=== PATIENT | female | born 1960 | race Caucasian/White ===

== ENCOUNTER 2019-01-03 15:00 | Inpatient (IN) ==
--- NOTE | 2019-01-03 15:11 | Emergency Department Note ---
Disposition Clinical Impression: NSTEMI (non-ST elevated myocardial infarction) Disposition: Admitted As Inpatient Condition: Good General Adult HPI - General Stated complaint: Chest Pain / MART / Nausea Time Seen by Provider: 01/03/19 15:08 - Related Data Home Medications Medication Instructions Recorded Confirmed Cetirizine HCl [Zyrtec] 10 mg PO DAILY 03/10/16 03/10/16 Dapagliflozin Propanediol [Farxiga] 5 mg PO DAILY 03/10/16 03/10/16 Lisinopril 2.5 mg PO DAILY 03/10/16 03/10/16 Montelukast [Singulair] 10 mg PO DAILY 03/10/16 03/10/16 Sitagliptin Phos/Metformin HCl 1 tab PO BID 03/10/16 03/10/16 [Janumet 50-1,000 mg Tablet] hydroCHLOROthiazide 25 mg PO DAILY 03/10/16 03/10/16 [Hydrochlorothiazide] Previous Rx's Medication Instructions Recorded Amoxicillin/Clavulanate [Augmentin] 875 mg PO BIDWM #7 tablet 09/13/17 Benzonatate [Tessalon] 200 mg PO TID PRN 7 Days capsule 09/13/17 Allergies Allergy/AdvReac Type Severity Reaction Status Date / Time No Known Allergies Allergy Verified 09/13/17 15:56 Past Medical History - Past Medical History Medical history: Reports: diabetes, hypertension Surgical history: Reports: Psychiatric history: Reports: no psych history [employer] history: Reports: non-contributory - Social History Smoking Status: Former smoker Smokeless Tobacco Status: No Alcohol use: Reports: none Drug use: Reports: none Course Vital Signs Temperature 97.7 F 01/03/19 15:16 Pulse Rate 84 01/03/19 15:16 Respiratory Rate 16 01/03/19 15:16 Blood Pressure 144/82 01/03/19 15:16 O2 Sat by Pulse Oximetry 100 01/03/19 15:16 Temperature 97.7 F 01/03/19 15:16 Pulse Rate 84 01/03/19 15:16 Respiratory Rate 16 01/03/19 15:16 Blood Pressure 144/82 01/03/19 15:16 O2 Sat by Pulse Oximetry 100 01/03/19 15:16 Oxygen Delivery Oxygen Delivery Room Air Medical Decision Making - Lab Data Result diagrams: 01/03/19 15:49 01/03/19 15:49 Lab Results 01/03/19 01/03/19 Range/Units 15:49 15:49 WBC 5.7 (4.3-11.1) K/mcL RBC 4.42 (3.82-4.97) M/mcL Hgb 12.9 (11.5-15.4) g/dL Hct 40.0 (35.3-44.9) % MCV 90.5 (83.0-100.0) fL MCH 29.2 (28.0-33.3) pg MCHC 32.3 (31.6-35.5) g/dL RDW 13.1 (11.5-14.5) % Plt Count 183 (140-400) K/mcL MPV 9.7 (9.4-12.4) fL Immature Gran % 0.2 (0-4) % Seg Neutrophils % 65.3 % Lymphocytes % 21.7 % Monocytes % 11.9 % Eosinophils % 0.7 % Basophils % 0.2 % Neutrophils # 3.7 (1.6-8.9) K/mcL Lymphocytes # 1.2 (0.6-4.6) K/mcL Monocytes # 0.7 (0.0-1.3) K/mcL Eosinophils # 0.0 (0.0-0.6) K/mcL Basophils # 0.0 (0.0-0.2) K/mcL Sodium 141 (136-145) mEq/L Potassium 3.5 (3.5-5.1) mEq/L Chloride 106 (98-107) mEq/L Carbon Dioxide 25 (23-29) mEq/L BUN 22 H (6-20) mg/dL Creatinine 1.26 H (0.60-1.20) mg/dL Est GFR ( Amer) 53 L (> 60) Est GFR (Non-Af Amer) 43 L (> 60) BUN/Creatinine Ratio 17 (6-26) Glucose 99 (70-105) mg/dL Calculated Osmolality 295 (280-300) Calcium 9.3 (8.6-10.3) mg/dL Troponin I 2.00 H* (< 0.04) ng/mL Attestation Statement - Attestation Attestation: I examined this patient and my medical decision-making was reviewed with the Resident Physician. I agree with the documented findings, disposition and treatment plan as described except to the extent set forth below. Patient with a non-STEMI, symptoms started 2 days ago have been intermittent since then. Troponin 2.0. No ischemic changes on EKG. Still has a heaviness in her chest now. No symptoms of GI bleeding or other abnormal bleeding. Will discuss with cardiology and admit to the hospital.
--- NOTE | 2019-01-03 15:16 | Emergency Department Note ---
Disposition Clinical Impression: NSTEMI (non-ST elevated myocardial infarction) Disposition: Admitted As Inpatient Condition: Good General Adult HPI - General Stated complaint: Chest Pain / MART / Nausea Time Seen by Provider: 01/03/19 15:08 Source: patient Mode of arrival: ambulatory Nursing Notes Reviewed: Yes Vital Signs Reviewed: Yes - History of Present Illness HPI Narrative: I have re-performed and reviewed the history documented by the medical student, and I confirm its accuracy except as noted below 58-year-old female presenting to [facility] ED for a one-day history of 5 out of 10 chest tightness in a bandlike distribution across her lower chest near the pectoralis musculature. Patient states that she has had significant life stressors and has taken 3 weeks off work due to the stress. Patient states that last evening approximately 5 or 6 PM that she was loading a car seat with her ex- into a vehicle when she became lightheaded and dizzy and noticed bandlike tension forming in her chest. 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 Patient states that she went home with the chest pain lasting throughout the evening also interfering with her sleep throughout the night. Patient states she woke this morning and believe the pain had gone but upon taking her granddaughter to school noticed that it had returned. Patient states that she has not taken anything for this discomfort since began. Patient states that she has past medical history of diabetes. Patient denies any other past medical history. Patient states that her mother had CHF and her father had COPD. No other significant family history listed. In addition to the symptoms mentioned above patient also complains of shaking in her extremities, feeling of "jitteriness", as well as numbness and paresthesias and a "soreness and tension" in her neck, bilateral shoulders, and back. Patient also admits to shortness of breath. Patient denies vomiting with nausea, patient has not had any recent fever or chills, she does not feel as though she will lose consciousness Onset (ago): day(s) Location: chest Radiation: back, neck, extremity Pain Severity: moderate Pain Scale: 5 Quality: dull, other (Pressure) Consistency: intermittent Improves with: nothing Worsens with: nothing Associated symptoms: Reports: chest pain, diaphoresis, headaches, nausea/vomiting, shortness of breath. Denies: fever/chills - Related Data Home Medications Medication Instructions Recorded Confirmed Cetirizine HCl [Zyrtec] 10 mg PO DAILY 03/10/16 01/03/19 Montelukast [Singulair] 10 mg PO HS 03/10/16 01/03/19 RX: hydroCHLOROthiazide 25 mg PO DAILY 03/10/16 01/03/19 [Hydrochlorothiazide] Sitagliptin Phos/Metformin HCl 1 tab PO BID 03/10/16 01/03/19 [Janumet 50-1,000 mg Tablet] Glimepiride [Amaryl] 2 mg PO DAILY 01/03/19 01/03/19 RX: BuPROPion SR (12 HR) 150 mg PO DAILY 01/03/19 01/03/19 [Wellbutrin SR] RX: Lisinopril [Zestril] 5 mg PO DAILY 01/03/19 01/03/19 Rosuvastatin Calcium 20 mg PO DAILY 01/03/19 01/03/19 Allergies Allergy/AdvReac Type Severity Reaction Status Date / Time No Known Allergies Allergy Verified 09/13/17 15:56 All systems ED: reviewed and negative except as stated. Review of Systems: As Per HPI Constitutional: Denies: fever, chills Cardiovascular: Reports: chest pain, palpitations Respiratory: Reports: dyspnea Gastrointestinal: Reports: nausea. 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 Absent: scleral icterus - Neck Neck exam: Present: normal inspection, trachea midline. Absent: thyromegaly - Chest Chest inspection: Present: normal inspection, symmetric chest wall rise - Respiratory Respiratory exam: Present: normal lung sounds bilaterally. Absent: respiratory distress, wheezes, stridor, accessory muscle use, prolonged expiratory phase - Cardiovascular Cardiovascular exam: Present: regular rate, normal rhythm, normal heart sounds, +S1, +S2. Absent: systolic murmur, diastolic murmur, JVD, +S3, +S4 - Abdominal Exam Abdominal exam: Present: soft, Non-Tender, normal bowel sounds. Absent: distention, guarding, rebound, rigidity, organomegaly - Extremities Exam Extremities exam: Present: normal inspection. Absent: pedal edema - Neurological Exam Neurological exam: Present: alert, oriented X3 - Psychiatric Psychiatric exam: Present: normal affect, normal mood - Skin Skin exam: Present: warm, dry, intact, normal color. Absent: rash, cyanosis, diaphoresis, erythema, pallor, mottled Course Course Narrative: ACS rule out We will administer Zofran for patient's nausea as well as 324 mg chewable asp irin for pain and cardiac prophylaxis CBC, BMP, troponin Chest x-ray, EKG/old EKG We will reassess Vital Signs Temperature 97.7 F 01/03/19 15:16 Pulse Rate 84 01/03/19 15:16 Respiratory Rate 16 01/03/19 15:16 Blood Pressure 144/82 01/03/19 15:16 O2 Sat by Pulse Oximetry 100 01/03/19 15:16 Temperature 97.8 F 01/04/19 00:37 Pulse Rate 69 01/04/19 00:37 Respiratory Rate 14 01/04/19 00:37 Blood Pressure 105/55 01/04/19 00:37 O2 Sat by Pulse Oximetry 97 01/04/19 00:37 Oxygen Delivery Oxygen Delivery Room Air Medical Decision Making - [facility] Narrative Medical decision making narrative: Cardiology consulted for end STEMI [employer] Rep recommended ACS dose heparin as well as nitroglycerin drip 12.5 mg metoprolol every 8 hour, patient given aspirin and fluids Patient admitted to hospitalist medicine service for further evaluation and STEMI - Lab Data Lab results reviewed: Yes I reviewed the patient's lab results. Result diagrams: 01/03/19 18:00 01/03/19 15:49 Lab Results 01/03/19 01/03/19 01/03/19 Range/Units 15:49 15:49 18:00 WBC 5.7 6.8 (4.3-11.1) K/mcL RBC 4.42 4.49 (3.82-4.97) M/mcL Hgb 12.9 13.1 (11.5-15.4) g/dL Hct 40.0 40.7 (35.3-44.9) % MCV 90.5 90.6 (83.0-100.0) fL MCH 29.2 29.2 (28.0-33.3) pg MCHC 32.3 32.2 (31.6-35.5) g/dL RDW 13.1 13.1 (11.5-14.5) % Plt Count 183 209 (140-400) K/mcL MPV 9.7 9.9 (9.4-12.4) fL Immature Gran % 0.2 (0-4) % Seg Neutrophils % 65.3 % Lymphocytes % 21.7 % Monocytes % 11.9 % Eosinophils % 0.7 % Basophils % 0.2 % Neutrophils # 3.7 (1.6-8.9) K/mcL Lymphocytes # 1.2 (0.6-4.6) K/mcL Monocytes # 0.7 (0.0-1.3) K/mcL Eosinophils # 0.0 (0.0-0.6) K/mcL Basophils # 0.0 (0.0-0.2) K/mcL PT (9.4-12.1) Seconds INR APTT (26.0-36.0) Seconds Heparin Anti-Xa, Unfract (0.30-0.70) IU/mL Sodium 141 (136-145) mEq/L Potassium 3.5 (3.5-5.1) mEq/L Chloride 106 (98-107) mEq/L Carbon Dioxide 25 (23-29) mEq/L BUN 22 H (6-20) mg/dL Creatinine 1.26 H (0.60-1.20) mg/dL Est GFR ( Amer) 53 L (> 60) Est GFR (Non-Af Amer) 43 L (> 60) BUN/Creatinine Ratio 17 (6-26) Glucose 99 (70-105) mg/dL Calculated Osmolality 295 (280-300) Calcium 9.3 (8.6-10.3) mg/dL Troponin I 2.00 H* (< 0.04) ng/mL 01/03/19 01/03/19 Range/Units 18:00 18:00 WBC (4.3-11.1) K/mcL RBC (3.82-4.97) M/mcL Hgb (11.5-15.4) g/dL Hct (35.3-44.9) % MCV (83.0-100.0) fL MCH (28.0-33.3) pg MCHC (31.6-35.5) g/dL RDW (11.5-14.5) % Plt Count (140-400) K/mcL MPV (9.4-12.4) fL Immature Gran % (0-4) % Seg Neutrophils % % Lymphocytes % % Monocytes % % Eosinophils % % Basophils % % Neutrophils # (1.6-8.9) K/mcL Lymphocytes # (0.6-4.6) K/mcL Monocytes # (0.0-1.3) K/mcL Eosinophils # (0.0-0.6) K/mcL Basophils # (0.0-0.2) K/mcL PT 10.4 (9.4-12.1) Seconds INR 0.9 APTT 29.2 (26.0-36.0) Seconds Heparin Anti-Xa, Unfract 0.04 L (0.30-0.70) IU/mL Sodium (136-145) mEq/L Potassium (3.5-5.1) mEq/L Chloride (98-107) mEq/L Carbon Dioxide (23-29) mEq/L BUN (6-20) mg/dL Creatinine (0.60-1.20) mg/dL Est GFR ( Amer) (> 60) Est GFR (Non-Af Amer) (> 60) BUN/Creatinine Ratio (6-26) Glucose (70-105) mg/dL Calculated Osmolality (280-300) Calcium (8.6-10.3) mg/dL Troponin I (< 0.04) ng/mL - Radiology Data Radiology results reviewed: Yes I reviewed the patient's radiology results. Chest X-Ray 01/03/19 15:42 IMPRESSION: No acute process. D/ / Peter Arevalo MD / Peter Arevalo MD Interpreting Provider: Peter Arevalo MD - EKG Data EKG #1 EKG attestation: Yes I reviewed and interpreted this EKG. EKG results narrative: Patient EKG shows sinus rhythm with ventricular rate of 74 bpm. Intervals 15 ms, QS duration 102 most extremities, QT/QTc interval 437.45 milliseconds shortly. There are no significant ST segment elevations, depressions, pathologic Q waves, abnormal T-wave inversions, or any other signs of acute ischemic change. This EKG performed today is generally consistent with prior EKG performed on March 042015.
[2019-01-03] MEDS ORDERED: Ondansetron ODT 4 MG TAB.RAPDIS SL ONE (15:51)
[2019-01-03] MEDS ORDERED: Aspirin 81 MG TAB.CHEW PO ONE (15:52)
[2019-01-03 16:03] LABS: Basophils % 0.2 %; Eosinophils % 0.7 %; Hemoglobin 12.9 g/dL (11.5-15.4); Immature Granulocytes % 0.2 % (0-4); Lymphocytes # 1.2 K/mcL (0.6-4.6); Lymphocytes % 21.7 %; Mean Corpuscular HGB Conc 32.3 g/dL (31.6-35.5); Mean Corpuscular Hemoglobin 29.2 pg (28.0-33.3); Mean Corpuscular Volume 90.5 fL (83.0-100.0); Mean Platelet Volume 9.7 fL (9.4-12.4); Monocytes # 0.7 K/mcL (0.0-1.3); Monocytes % 11.9 %; Neutrophils # 3.7 K/mcL (1.6-8.9); Platelet Count 183 K/mcL (140-400); Red Blood Count 4.42 M/mcL (3.82-4.97); Red Cell Distribution Width 13.1 % (11.5-14.5); Segmented Neutrophils % 65.3 %
[2019-01-03 16:20] LABS: Calcium 9.3 mg/dL (8.6-10.3); Potassium 3.5 mEq/L (3.5-5.1)
[2019-01-03] MEDS ORDERED: Nitroglycerin 0.4 MG TAB.SUBL SL PRN (17:25)
[2019-01-03] MEDS ORDERED: *HR* Heparin 5,000 UNIT/ML VIAL IVP PRN ×2 (17:28)
[2019-01-03] MEDS ORDERED: *HR* Heparin 5,000 UNIT/ML VIAL IVP ONE (17:28)
[2019-01-03] MEDS ORDERED: Heparin 25,000 UNIT/250 ML D5W 25,000 UNIT/250 ML IV.SOLN IVC SCH (17:30)
[2019-01-03] MEDS ORDERED: 0.9 % Sodium Chloride 1,000 ML IVC SCH (18:00)
[2019-01-03] MEDS ORDERED: 0.9 % Sodium Chloride 1,000 ML ONE (18:10)
[2019-01-03] MEDS ORDERED: Nitroglycerin 25 MG/250 ML INFUS..BTL IVC SCH (18:15)
[2019-01-03 18:22] LABS: Hematocrit 40.7 % (35.3-44.9); Hemoglobin 13.1 g/dL (11.5-15.4); Mean Corpuscular HGB Conc 32.2 g/dL (31.6-35.5); Mean Corpuscular Hemoglobin 29.2 pg (28.0-33.3); Mean Corpuscular Volume 90.6 fL (83.0-100.0); Mean Platelet Volume 9.9 fL (9.4-12.4); Platelet Count 209 K/mcL (140-400); Red Blood Count 4.49 M/mcL (3.82-4.97); Red Cell Distribution Width 13.1 % (11.5-14.5)
[2019-01-03] MEDS ORDERED: Acetaminophen 325 MG TABLET PO PRN (18:26)
[2019-01-03] MEDS ORDERED: Naloxone 0.4 MG/ML INJ IVP PRN (18:26)
[2019-01-03 18:30] LABS: Heparin anti-factor XA UFH 0.04 IU/mL (0.30-0.70); INR 0.9; Prothrombin Time 10.4 Seconds (9.4-12.1)
[2019-01-03] MEDS ORDERED: D5% in Water 1,000 ML IVC PRN (18:32)
[2019-01-03] MEDS ORDERED: *HR* Dextrose 50 % in Water (Syg) 50 ML SYRINGE IVP PRN (18:32)
[2019-01-03] MEDS ORDERED: Dextrose Gel 15 GM/37.5 ML TUBE PO PRN ×2 (18:32)
--- NOTE | 2019-01-03 18:51 | Internal Med History&Physical ---
Date of Encounter: 01/03/19 Time of Encounter: 18:00 Internal Medicine - H&P: HPI Chief complaint: Chest pain Admitted From: Home Plans for Post Hospital Care: Home History of present illness: Ms. Babcock is a 58 year old female present to ER for chest pain. Past medical history is significant for diabetes, S/P 2, tonsillectomy, carpal tunnel surgery, morbid obesity. Patient started to have nausea since yesterday evening 5 PM. With lightheaded when she stands up. Patient had diaphoresis. Patient feels chest tightness, pressure, dull pain, and bilateral arm "hurt". Patient had shortness of breath. Patient went to sleep because she feels not good. This morning, when she wake- up, she feels nausea has improved but chest pressure and dull pain remains. Patient denies fever, cough, abdominal pain, or diarrhea. Patient was suggested by family member to come to ER. In the emergency room, EKG has been done, which shows lead I and aVL T-wave flat, no significant ST elevation. First of troponin 2.0. Cardiology was counseled by emergency room. Patient was admitted as NSTEMI. Past Med Surg Social Fam HX - Past Medical History Medical history: diabetes, hypertension Additional medical history: sleep apnea with cpap 15. History of tobacco use. carpal tunnel syndrome. HLD. diabetes. Trigger finger left thumb and left index finger. triiger finger right index finger Psychiatric history: no psych history - Past Surgical History Surgical History: Additional surgical history: c section x2. T&A - Social History Smoking Status: Former smoker Smokeless Tobacco Status: No Alcohol use: none Drug use: none - Family History Mother History Unknown: Yes Internal Medicine - H&P: Meds Cetirizine HCl [Zyrtec] 10 mg PO DAILY 03/10/16 [History] Dapagliflozin Propanediol [Farxiga] 5 mg PO DAILY 03/10/16 [History] Lisinopril 2.5 mg PO DAILY 03/10/16 [History] Montelukast [Singulair] 10 mg PO DAILY 03/10/16 [History] Sitagliptin Phos/Metformin HCl [Janumet 50-1,000 mg Tablet] 1 tab PO BID [History] hydroCHLOROthiazide [Hydrochlorothiazide] 25 mg PO DAILY 03/10/16 [History] Amoxicillin/Clavulanate [Augmentin] 875 mg PO BIDWM #7 tablet 09/13/17 [Rx] Benzonatate [Tessalon] 200 mg PO TID PRN 7 Days capsule 09/13/17 [Rx] Allergy/AdvReac Type Severity Reaction Status Date / Time No Known Allergies Allergy Verified 09/13/17 15:56 All Systems PM: A 10-system review of systems was performed and is negative for pertinent findings except as documented above in the HPI. - Constitutional Vitals: Temp Pulse Resp BP Pulse Ox 97.7 F 74 20 152/85 98 01/03/19 15:16 01/03/19 18:32 01/03/19 18:32 01/03/19 18:32 01/03/19 18:32 Exam: Pt is AAO x 3, in NAD HEENT: NC/AT, PERRL Neck: Supple, no JVD, no LAD Lungs: CTA b/l Heart: S1S2, RRR Abd: Soft, nontender, BS present Ext: ROM wnl, no pedal edema Neuro: No focal deficit Internal Med - H&P Results - Labs CBC & Chem 7: 01/03/19 18:00 01/03/19 15:49 Labs: Short CBC 01/03/19 01/03/19 Range/Units 15:49 18:00 WBC 5.7 6.8 (4.3-11.1) K/mcL Hgb 12.9 13.1 (11.5-15.4) g/dL Hct 40.0 40.7 (35.3-44.9) % Plt Count 183 209 (140-400) K/mcL Neutrophils # 3.7 (1.6-8.9) K/mcL BMP 01/03/19 15:49 Sodium 141 Potassium 3.5 Chloride 106 Carbon Dioxide 25 BUN 22 H Creatinine 1.26 H Glucose 99 Calcium 9.3 Cardiac Enzymes 01/03/19 Range/Units 15:49 Troponin I 2.00 H* (< 0.04) ng/mL - Impressions ITS Impressions Chest X-Ray 01/03/19 15:42 IMPRESSION: No acute process. D/ / Peter Arevalo MD / Peter Arevalo MD Interpreting Provider: Peter Arevalo MD - Assessment and Plan (1) Diabetes mellitus Current Visit: Yes Status: Acute Assessment and plan: Patient takes Janumet at home. Will place patient on sliding scale insulin coverage. Qualifiers: Diabetes mellitus type: type 2 Diabetes mellitus terminal supervisor insulin use: without detention use Diabetes mellitus complication status: without complica tion Qualified Code(s): E11.9 - Type 2 diabetes mellitus without complications (2) NSTEMI (non-ST elevated myocardial infarction) Current Visit: Yes Status: Acute Assessment and plan: Patient has chest pain, pressure-like, with nausea, shortness of breath, and diaphoresis. Has a risk factor of morbid obesity and diabetes. Has history of smoking, quit 5-7 years ago. Elevated troponin without ST elevation, consider NSTEMI. - Place patient on continuous cardiac monitoring - Track totally 3 sets of troponin - Heparin drip and nitroglycerin drip started from ER, will continue. - ASA 324 mg by mouth once given from ER. Metoprolol 12.5 mg by mouth every 8 hours. - Nothing by mouth from midnight for possible LHC in AM - Consult cardiology. Management plans discussed with brand lead Dr. Lamb. (3) DVT prophylaxis Current Visit: Yes Status: Acute Assessment and plan: Patient is on heparin drip (4) Morbid obesity Current Visit: Yes Status: Acute Assessment and plan: BMI of 40.9. Need lifestyle modification as outpatient. - Time Spent With Patient Total time spent is greater than 50% in coordination of care (as documented) at patient's floor/unit and/or counseling patient: 40 minutes Greater than 35 minutes
[2019-01-03] MEDS: Ondansetron 4 MG/2 ML VIAL IVP SCH (21:50)
[2019-01-03] MEDS: 0.9 % Sodium Chloride 1,000 ML IVC SCH (21:54)
[2019-01-03] MEDS: Insulin LISPRO 300 UNITS/3 ML VIAL SQ SCH (22:33)
[2019-01-04] MEDS: Ondansetron 4 MG/2 ML VIAL IVP SCH ×6 (00:17→20:32)
[2019-01-04 01:45] LABS: Basophils % 0.4 %; Eosinophils # 0.1 K/mcL (0.0-0.6); Eosinophils % 1.5 %; Hematocrit 36.4 % (35.3-44.9); Hemoglobin 11.7 g/dL (11.5-15.4); Immature Granulocytes % 0.4 % (0-4); Lymphocytes # 1.9 K/mcL (0.6-4.6); Lymphocytes % 34.8 %; Mean Corpuscular HGB Conc 32.1 g/dL (31.6-35.5); Mean Corpuscular Hemoglobin 29.4 pg (28.0-33.3); Mean Corpuscular Volume 91.5 fL (83.0-100.0); Monocytes # 0.5 K/mcL (0.0-1.3); Monocytes % 9.1 %; Platelet Count 182 K/mcL (140-400); Red Blood Count 3.98 M/mcL (3.82-4.97); Red Cell Distribution Width 13.1 % (11.5-14.5); Segmented Neutrophils % 53.8 %
[2019-01-04 02:05] LABS: Calcium 8.5 mg/dL (8.6-10.3); Chol/HDL Ratio 2.8 (0-4.9); Potassium 3.4 mEq/L (3.5-5.1)
[2019-01-04] MEDS ORDERED: Potassium Chloride 40 MEQ, Lidocaine 1% 2 ML in D5% in Water 500 ML IVPB ONE (07:48)
[2019-01-04] MEDS: Insulin LISPRO 300 UNITS/3 ML VIAL SQ SCH ×4 (08:56→21:45)
--- NOTE | 2019-01-04 09:37 | Cardiology Consult Note ---
<Marcello Celaya - Last Filed: 01/04/19 10:00> Date of Encounter: 01/04/19 Time of Encounter: 09:33 Assessment and Plan (1) NSTEMI (non-ST elevated myocardial infarction) Current Visit: Yes Status: Acute DM female presenting with chest pain for three days. No prior cardiac history. Troponin elevation up to 3.87. EKG shows SR with possible old septal infarct. Continue heparin gtt. [facility] recommended. [facility] indication, risk, benefit, and alternatives reviewed. She agrees to proceed. Start asa, statin, and bb. NTG SL for chest pain. (2) Diabetes mellitus Current Visit: Yes Status: Acute H/o type II DM. IM following. Qualifiers: Diabetes mellitus type: type 2 Diabetes mellitus parts counterman insulin use: without fci use Diabetes mellitus complication status: without complication Qualified Code(s): E11.9 - Type 2 diabetes mellitus without complications Discussion w patient/family: The assessment and plan as outlined above was discussed with the patient and/or family members who expressed understanding and agreement. All questions were answered. Thank you for involving us in the care of your patient. Please call with any questions. History of Present Illness Consult date: 01/04/19 Requesting physician: Giovanny Guillermo Consult reason: NSTEMI Chief complaint: chest pain, diaphoresis, fatigue History of present illness: Ms. Babcock is a 58 year old female with past medical history of DM type II, HTN, HLD, and obesity who presents with c/o chest pain for three days. Her chest pain started wednesday afternoon when she was getting ready to go to a meeting. She describes the pain as a midsternal heaviness and pressure. After bending over and standing she became very diaphoretic and lightheaded. She continued to have chest pressure and fatigue for the next two days as she carried on her normal activities. Yesterday morning she she started to feel better. Unfortunately her pain returned with physical exertion later that morning. That is when she decided to go to the ED. She is currently pain free after receiving SL NTG and NTG IV gtt. Past Med Surg Social Fam HX - Past Medical History Medical history: diabetes, hyperlipidemia, hypertension Additional medical history: sleep apnea with cpap 15. History of tobacco use. carpal tunnel syndrome. HLD. diabetes. Trigger finger left thumb and left index finger. triiger finger right index finger Psychiatric history: no psych history - Past Surgical History Surgical History: Additional surgical history: c section x2. T&A - Social History Smoking Status: Former smoker Smokeless Tobacco Status: No Alcohol use: none Drug use: none - Family History Mother History Unknown: Yes Name: Leonor Harrison Living Status: Age at : 75 Cause of : CHF Hx Family Cardiac Disorders: Yes (chf) Hx Family Respiratory Disorders: No Hx Family Cancer: No Hx Family GI Disorders: No Hx Family Genitourinary Disorders: No Hx Family Endocrine Disorder: No Hx Family Musculoskeletal Disorders: No Hx Family Neuromuscular Disorders: No Hx Family Neurologic Disorders: No Hx Family HEENT Disorders: No Hx Family Autoimmune Disorders: No Hx Family Reproductive Disorders: No Hx Family Psychosocial Disorders: No Hx Family Medical Disorders: No Medications and Allergies Cetirizine HCl [Zyrtec] 10 mg PO DAILY 03/10/16 [History] Montelukast [Singulair] 10 mg PO HS 03/10/16 [History] Sitagliptin Phos/Metformin HCl [Janumet 50-1,000 mg Tablet] 1 tab PO BID 03/10/16 [History] hydroCHLOROthiazide [Hydrochlorothiazide] 25 mg PO DAILY 03/10/16 [History] BuPROPion SR (12 HR) [Wellbutrin SR] 150 mg PO DAILY 01/03/19 [History] Glimepiride [Amaryl] 2 mg PO DAILY 01/03/19 [History] Lisinopril [Zestril] 5 mg PO DAILY 01/03/19 [History] Rosuvastatin Calcium 20 mg PO DAILY 01/03/19 [History] Allergy/AdvReac Type Severity Reaction Status Date / Time No Known Allergies Allergy Verified 09/13/17 15:56 All Systems Review: The remainder of the systems were reviewed and are negative Physical Examination Vital Signs, Last 4 Hours Temp Pulse Resp BP Pulse Ox 01/04/19 07:00 97.5 F L 60 16 103/52 95 General: Conversant, No Apparent Distress HEENT: Atraumatic, Normocephaly, Mucus Membranes Moist Neck: No JVD, Normal carotid pulses Cardiac: Reg Rate and Rhythm, Normal S1 and S2, No Murmur Lungs: Normal Breath Sounds, No Wheeze, Rales, Rhonchi Neuro: Alert and responsive, No focal deficits noted Abdomen: Soft, Non-Tender Skin: No rashes noted on visualized skin Musculoskeletal: No Chest Wall Tenderness Extremities: No Clubbing, No Cyanosis, No Edema, Normal Pulses Results 01/04/19 01:26 01/04/19 01:26 Lab Results 01/03/19 01/03/19 01/03/19 15:49 15:49 18:00 WBC 5.7 6.8 Hgb 12.9 13.1 Hct 40.0 40.7 Plt Count 183 209 INR APTT Sodium 141 Potassium 3.5 Chloride 106 Carbon Dioxide 25 BUN 22 H Creatinine 1.26 H Glucose 99 Calcium 9.3 Magnesium Troponin I 2.00 H* 01/03/19 01/03/19 01/03/19 18:00 18:00 21:44 WBC Hgb Hct Plt Count INR 0.9 APTT 29.2 Sodium Potassium Chloride Carbon Dioxide BUN Creatinine Glucose Calcium Magnesium Troponin I 3.14 H* 01/04/19 01/04/19 01/04/19 01:26 01:26 01:26 WBC 5.5 Hgb 11.7 Hct 36.4 Plt Count 182 INR APTT Sodium 140 Potassium 3.4 L Chloride 107 Carbon Dioxide 26 BUN 20 Creatinine 1.18 Glucose 119 H Calcium 8.5 L Magnesium 2.0 Troponin I 3.87 H* 01/04/19 05:44 WBC Hgb Hct Plt Count INR APTT Sodium Potassium Chloride Carbon Dioxide BUN Creatinine Glucose Calcium Magnesium Troponin I 3.81 H* - Imaging and Cardiology Echo: pending - EKG Interpretation EKG results cardiology: personally reviewed Consult Discharge Plan - Plan Referrals: Allegra Rockwell CNP [Primary Care Provider] - <Jie Sotelo - Last Filed: 01/04/19 11:47> Date of Encounter: 01/04/19 - Attending Attestation I examined this patient and my medical decision-making was reviewed with the CONSULTING PRACTICE MANAGER. I agree with the documented findings, disposition and treatment plan as described. Assessment and Plan Discussion w patient/family: The assessment and plan as outlined above was discussed with the patient and/or family members who expressed understanding and agreement. All questions were answered. Thank you for involving us in the care of your patient. Please call with any questions. History of Present Illness History of present illness: Ms. Babcock is a 58 year old female All Systems Review: The remainder of the systems were reviewed and are negative Physical Examination Vital Signs, Last 4 Hours Temp Pulse Resp BP Pulse Ox 01/04/19 11:32 98 F 52 20 91/57 96 Results 01/04/19 01:26 01/04/19 01:26 Lab Results 01/03/19 01/03/19 01/03/19 15:49 15:49 18:00 WBC 5.7 6.8 Hgb 12.9 13.1 Hct 40.0 40.7 Plt Count 183 209 INR APTT Sodium 141 Potassium 3.5 Chloride 106 Carbon Dioxide 25 BUN 22 H Creatinine 1.26 H Glucose 99 Calcium 9.3 Magnesium Troponin I 2.00 H* 01/03/19 01/03/19 01/03/19 18:00 18:00 21:44 WBC Hgb Hct Plt Count INR 0.9 APTT 29.2 Sodium Potassium Chloride Carbon Dioxide BUN Creatinine Glucose Calcium Magnesium Troponin I 3.14 H* 01/04/19 01/04/19 01/04/19 01:26 01:26 01:26 WBC 5.5 Hgb 11.7 Hct 36.4 Plt Count 182 INR APTT Sodium 140 Potassium 3.4 L Chloride 107 Carbon Dioxide 26 BUN 20 Creatinine 1.18 Glucose 119 H Calcium 8.5 L Magnesium 2.0 Troponin I 3.87 H* 01/04/19 05:44 WBC Hgb Hct Plt Count INR APTT Sodium Potassium Chloride Carbon Dioxide BUN Creatinine Glucose Calcium Magnesium Troponin I 3.81 H*
[2019-01-04] MEDS ORDERED: Verapamil 5 MG/2 ML VIAL ONE (09:43)
[2019-01-04] MEDS ORDERED: Heparin 1,000 UNITS/500 mL 500 ML ONE (09:44)
[2019-01-04] MEDS ORDERED: ISOVUE-370 200 ML INFUS..BTL ONE ×2 (09:44→09:48)
[2019-01-04] MEDS ORDERED: *HR* Heparin 10,000 UNIT/10 ML VIAL ONE (09:44)
[2019-01-04] MEDS ORDERED: Nitroglycerin 1,000 MCG/10 ML VIAL IV ONE (09:44)
[2019-01-04] MEDS ORDERED: 0.9 % Sodium Chloride 1,000 ML ONE ×2 (09:44→09:50)
[2019-01-04] MEDS: 0.9 % Sodium Chloride 1,000 ML IVC SCH (10:19)
[2019-01-04] MEDS ORDERED: *HR* Midazolam HCl 2 MG/2 ML VIAL ONE (10:24)
[2019-01-04] MEDS ORDERED: *HR* FentaNYL (PF) 100 MCG/2 ML VIAL ONE (10:32)
[2019-01-04] MEDS ORDERED: *HR* Atropine Sulfate 1 MG/10 ML SYRINGE ONE (10:44)
[2019-01-04] MEDS ORDERED: *HR* Ticagrelor 90 MG TABLET ONE (10:56)
--- NOTE | 2019-01-04 11:06 | Event Note ---
Date of Encounter: 01/04/19 Time of Encounter: 11:05 - Cardiology Event Note Cath completed LVEF 60% RCA: mid complex 85% 3.5 yumi LCA no severe disease recommend dapt medical therapy cardiac rehab DM control
--- NOTE | 2019-01-04 11:11 | Pre-Sedation Evaluation ---
Pre-sedation evaluation - Pre-sedation checklist Date of procedure: 01/04/19 Recent Vitals: Last Vital Signs Temp 97.5 F L 01/04/19 07:00 Pulse 60 01/04/19 07:00 Resp 16 01/04/19 07:00 BP 103/52 01/04/19 07:00 Pulse Ox 95 01/04/19 07:00 H&P (including ROS) documented in medical record: Yes Previous reaction to sedatives/anesthetics: No Dietary Status: NPO after Midnight Airway Assessment: Patient can open mouth completely, TMJ function normal Dentition: No loose teeth or bridges Possible difficult airway: No ASA Classification *see protocol: CLASS II-Mild systemic disease Plan of Care: Pt appropriate candidate for procedure/moderate/conscious sedation Cardiac Registry (Cardio Only) - Functional Capacity Functional Capacity: >=4 METS with symptoms - Clincal Frailty Scale Clinical Frailty Scale: Well
--- NOTE | 2019-01-04 11:16 | Invasive Diagnostic Lab Proc ---
Name: Margaret Babcock Date of Study: 01/04/2019 Date: 1960 Ht: 60.6in Medical Record#: [id number] Age: 58 Wt: 220.46lb Gender: Female BSA: 1.96 Order #: [id number] BMI: 42.17 Physicians Procedure Physician: Daron Hernández MD Referring MD: Referring MD: Staff Name Position Time In RobertoKing RT (R) Scrub 10:20 AM Milton Ren RN Manager Beauty 10:20 AM Nancy Wharton RN Monitor 10:22 AM Mame Gonzalez RN Nurse 10:23 AM Indications Indication Non-Stemi Procedures Performed Procedure L HRT ARTERY/VENTRICLE ANGIO PRQ CARD SAWYER STENT W/ANGIO 1 VSL Pre-Procedure Checklist Informed consent is complete signed and on chart. H&P is on chart. ID band is on and ID verified with patient. Patient NPO for procedure The procedure was described for the patient and questions were answered. ECG is on chart. Plan of Care Patient will tolerate the procedure without complications. Adequate level of comfort will be maintained. Hemodynamics will remain stable Patient will recover from procedure without complications. Respiratory function will be maintained. Cardiac rhythm will remain stable. Patient temperature will be maintained. Patient and/or family have verbalized understanding of the procedure. Patient Education Chief Complaint/Reason for Test: Cardiac Cath Developmental Category: Adult (18-64 years) Developmentally Appropriate for Age: Yes Learning Barriers: None Education Needs: Procedure Education Method: Verbal Information Taught: Cardiac Cath Educational Evaluation: Able to repeat information Intravenous Access Time IV Size Location DC'd Fluid/Drip Rate Units RN 20g 1 09/16" Patent On Arrival 0.9NaCl ml/hr Allergies No Known Allergies Vital Signs Time BP (mmHg) HR (bpm) O2 Sat. RR (bpm) LOC 10:24 AM / % 5 = Fully awake and oriented or at pre-proc level 10:25 AM / % 4 = Oriented but drowsy 10:40 AM / % 4 = Oriented but drowsy 10:23 AM 131 / 74 53 98 % 8 10:28 AM 122 / 67 58 77 % 10:33 AM 113 / 62 58 99 % 38 10:38 AM 100 / 44 54 92 % 19 10:43 AM 97 / 48 48 93 % 18 10:48 AM 103 / 60 56 95 % 22 10:53 AM 109 / 55 59 95 % 26 Procedural Medications Time Medication Dose Units Method Given By 10:25 AM Versed 2 mg Intravenous Milton Ren RN 10:31 AM Lidocaine 2% 1 ml Subcutaneous Daron Hernández MD 10:33 AM Heparin 4000 units Nitroglycerin 200 mcg Verapamil 2.5 mg Intraarterial Daron Hernández MD 10:33 AM Fentanyl 25 mcg Intravenous Milton Ren RN 10:44 AM Heparin 3000 units Intravenous Milton Ren RN 10:46 AM Nitroglycerin 200 mcg Intracoronary Daron Hernández MD 10:57 AM Brilinta 180 mg Orally Milton Ren RN ASA Classification: CLASS II- Mild systemic disease (i.e. well-controlled diabetes, hypertension, asthma, cigarette smoking) Evert Score Preprocedure Postprocedure Activity 2- Moves 4 extremities sustained head lift Activity 2- Moves 4 extremities sustained head lift Circulation 2- SBP +/= 20 points of pre-anesthetic level Circulation 2- SBP +/= 20 points of pre-anesthetic level Consciousness 2- Awake and alert oriented x 3 Consciousness 2- Awake and alert oriented x 3 O2 Saturation 2- Able to maintain O2 satruation of 92% on room air O2 Saturation 2- Able to maintain O2 satruation of 92% on room air Respiratory 2- Able to deep breathe and cough well Respiratory 2- Able to deep breathe and cough well Total Score 10 Total Score 10 Contrast Agent: Isovue Diagnostic Contrast: 100 ml Total Contrast: 100 ml Fluoro Dose: 40 mGy Activated Clotting Time Time Seconds to Clot 10:44 AM 178 11:03 AM 380 Procedure Log Time Note Enter By 09:56 AM Patient charges- Angio tray pack, Navilyst 3mm J, Pulse Oximetry and ACIST tubing and transducer [email or web address] 09:56 AM Clinical Presentation: Non-STEMI tsoummers 10:18 AM Pt arrived to industrial laborer 2 at 10:18 [email or web address] 10:20 AM King Mejia RT (R) Position: Scrub Time in: 10:20 tsmmers 10:20 AM Patient charges- Angio tray pack, Navilyst 3mm J, Pulse Oximetry and ACIST tubing and transducer tsoummers 10:20 AM Milton Ren RN Position: Manager Beauty Time in: 10:20 tsmmers 10:20 AM Patient charges- Angio tray pack, Navilyst 3mm J, Pulse Oximetry and ACIST tubing and transducer 10:20 AM IV Supplies used: J loop Angio Cath. mmers 10:20 AM Case Delayed No mm 10:20 AM Physician arrived 10:20 [facility] 10:20 AM Meet and greet completed [facility] 10:20 AM Sign in performed according to hospital policy. Informed consent was obtained. mm 10:20 AM Procedure start 10:mmers 10: AM CathStat 10: AM Vitals capture started with the following parameters, Patient=Adult, Interval=5 min, Initial Nukgaiwp=706 mmHg, Deflation Rate=5 mmHg, Cuff placed on Right Arm 10: AM Nancy Wharton RN Position: Monitor Time in: 10: AM Mame Gonzalez RN Position: Nurse Time in: [facility] 10: AM Vitals capture started with the following parameters, Patient=Adult, Interval=5 min, Initial Kbnrrahy=415 mmHg, Deflation Rate=5 mmHg, Cuff placed on Right Arm 10: AM HR=53 bpm, NSYQ=991/74 mmhg, SpO2=98.0 %, Resp=8 B/min 10:24 AM ASA Class CLASS II- Mild systemic disease (i.e. well-controlled diabetes, hypertension, asthma, cigarette smoking) mm 10:24 AM Hair removed from procedure site in procedure lab using clippers. tami prepped with Chloraprep by , then patient was draped. Skin intact. mmers 10:24 AM Recorded ECG: HR=56 Condition=Condition 1 10:24 AM Time: 10:24 Patient comfortable and pain free: Yes mm 10:25 AM Time: 10:24LOC: 5 = Fully awake and oriented or at pre-proc level mmers 10:25 AM Time: 10:25 Versed 2 mg Intravenous Given by Milton Ren RN [facility] 10: AM Recorded ECG: HR=67 Condition=Condition 1 10:28 AM HR=58 bpm, IYJW=081/67 mmhg, SpO2=77.0 % 10:30 AM Time out was performed according to hospital policy. Conscious sedation and anesthesia was achieved (see medication log with in this report above) [facility] 10:31 AM Pressure channel 2 zeroed. 10:31 AM Pressure channel 2 zeroed. 10:31 AM Time: 10:31 1 ml Lidocaine 2% to right radial Subcutaneous Given by Daron Hernández MD [facility] 10:32 AM Access obtained by percutaneous puncture. 6Fr 10cm Terumo Glidesheath sheath placed in right Radial artery. [id number] [facility] 10:33 AM Time: 10:33 Patient given 4,000 units Heparin, 200 mcg Nitroglycerin, and 2.5 mg Verapamil Intraarterial by Daron Hernández MD. This is given to reduce risk of vessel spasm and thrombosis. [facility] 10:33 AM Time: 10:33 Fentanyl 25 mcg Intravenous Given by Milton Ren RN [facility] 10:33 AM 0.035 145cm Navilyst 3mmJ wire [id number] avis 10:33 AM 5Fr FL 3.5 [facility] HR=58 bpm, LMLX=085/62 mmhg, SpO2=99.0 %, Resp=38 B/min, EtCO2=36 mmHg 10:35 AM LCA angiography performed in multiple views. [facility] 10:36 AM Recorded Pressure: Ao, HR=59, Condition=Condition 1 (Aorta) Ao 83/57/68 10:38 AM Catheter removed [facility] 10:38 AM 5Fr FR 4 [facility] AM HR=54 bpm, BLDI=725/44 mmhg, SpO2=92.0 %, Resp=19 B/min, EtCO2=27 mmHg 10:39 AM RCA angiography performed in multiple views. [facility] 10:39 AM Recorded Pressure: Ao, HR=59, Condition=Condition 1 (Aorta) Ao 89/54/71 10:39 AM Time: 10:24 Patient comfortable and pain free: Yes [facility] 10:40 AM Time: 10:25LOC: 4 = Oriented but drowsy [facility] 10:42 AM Recorded Pressure: LV, HR=59, Condition=Condition 1 (Left Ventricle) LV 92/2/12 10:42 AM Recorded Pressure: LV, HR=58, Condition=Condition 1 (Left Ventricle) LV 95/3/14 10:42 AM Recorded Pressure: LV, Ao, HR=55, Condition=Condition 1 (Left Ventricle) LV 94/7/14, (Aorta) Ao 89/48/66 10:43 AM Catheter removed [facility] 10:43 AM 5Fr Pigtail catheter inserted over the wire [facility] 10:43 AM Catheter crossed the aortic valve and was selectively placed in the left ventricle. Pressures recorded on pullback for left heart catheterization. [facility] 10:43 AM HR=48 bpm, NIBP=97/48 mmhg, SpO2=93.0 %, Resp=18 B/min, EtCO2=30 mmHg 10:43 AM Bolus angiogram of left Ventricle complete: hand injected [facility] 10:44 AM At 10:44 the ACT was 178 seconds. [facility] 10:44 AM Catheter removed [facility] 10:45 AM Time: 10:44 Heparin 3000 units Intravenous Given by Milton Ren RN [facility] 10:45 AM 6Fr JR 4 Runway guide catheter was used to cannulate the PCI vessel successfully. reused? No [facility] 10:45 AM .014 Balance 300cm guide wire across target lesion- successful. reused? No [facility] 10:45 AM Inflation device was opened. [facility] 10:46 AM Time: 10:46 Nitroglycerin 200 mcg Intracoronary Given by Daron Hernández MD [facility] 10:47 AM Recorded Pressure: Ao, HR=60, Condition=Condition 1 (Aorta) Ao 83/52/67 10:48 AM 3.5mm x 12mm Synergy drug-eluting stent across target lesion- successful Lot #[id number] [facility] 10:48 AM HR=56 bpm, PVLF=834/60 mmhg, SpO2=95.0 %, Resp=22 B/min, EtCO2=39 mmHg 10:50 AM Stent deployed @ 12 nohemi for 30 seconds [facility] 10:50 AM Stent delivery system removed intact. [facility] 10:53 AM Guide wire removed intact. [facility] 10:53 AM HR=59 bpm, DTZK=105/55 mmhg, SpO2=95.0 %, Resp=26 B/min, EtCO2=32 mmHg 10:54 AM Guide catheter removed intact. [facility] 10:54 AM Procedure completed at 10:54 01/04/2019 [facility] 10:54 AM Did you address MAHENDRA flow and Dominance? Yes [facility] 10:54 AM Time: 10:39 Patient comfortable and pain free: Yes [facility] 10:55 AM Time: 10:40LOC: 4 = Oriented but drowsy [facility] 10:56 AM Sign out completed: Radiation Dose 466.74 mGy, 39.5 Gy/cm2 Fluoro Time: 6.7 Isovue 370 - 200ml contrast 100 ml given by Daron Hernández MD. Complications: None. The patient was discharged out of the [place] conservation laborer in stable condition. Sedation minutes 30. Cardiac Rehab Consult needed: No. Confirmed administered medications: Yes [facility] 10:56 AM Isovue 370 - 200ml,1 Bottle(s) used. [facility] 10:56 AM Arterial sheath pulled, Vasc Band closure device used and was Successful S/N. [facility] 10:57 AM Time: 10:57 Brilinta 180 mg Orally Given by Milton Ren RN [facility] 10:57 AM 11 ml air in Vasc Band. [facility] 10:57 AM Estimated Blood Loss: minimal [facility] 10:57 AM Post ECG Sinus Bradycardia [facility] 10:57 AM Post Blood Pressure 109/55 [facility] 10:58 AM Information taught Cardiac Cath, PCI, and Vasc Band [facility] 10:58 AM Education needs Procedure, Plan of Care, and Disease Process [facility] 10:58 AM Learning barriers :None [facility] 10:58 AM Education Methods Verbal [facility] 10:58 AM Education evaluation Able to repeat information [facility] 10:58 AM Site status No bleeding/hematoma - Rt Arm as reported by King Mejia RT (R) at 10:58 [facility] 10:58 AM Opsite applied [facility] 10:58 AM Report given to Jeimy RN Pt taken to 2NE Room #24. 10:58 [facility] 10:58 AM Plavix, Effient or Brilinta given Yes [facility] 10:59 AM Delay to floor No [facility] 10:59 AM Patient out of room: 10:59 [facility] 10:59 AM Family placed in consult room. [facility] 10:59 AM Complications: None [facility] 11:01 AM Coronary Dominance: right [facility] 11:02 AM Lesion found in Proximal RCA. Pre Stenosis: 20 Pre MAHENDRA Flow: [facility] 11:02 AM Lesion found in Mid RCA. Pre Stenosis: 85 Pre MAHENDRA Flow: 2: Partial Flow/Perfusion (> 1 but < 3) [facility] 11:02 AM Lesion found in 1st Diagonal. Pre Stenosis: 25 Pre MAHENDRA Flow: [facility] 11:03 AM Lesion found in Proximal Circumflex. Pre Stenosis: 20 Pre MAHENDRA Flow: [facility] 11:03 AM At 11:03 the ACT was 380 seconds. [facility] 11:03 AM Mid/Distal Left Anterior Descending Coronary Artery and diagonal branches with 25% stenosis. If graft is supplying this area, 0 % stenosis [facility] 11:03 AM Circumflex, Obtuse Marginal, Left Posterior Descending, and Left Posterolateral Coronary Arteries with 20 % stenosis. If graft is supplying this area, 0 % stenosis [facility] 11:04 AM Right Coronary, Right Posterior Descending Arteries with Right Posterolateral and Acute Marginal branches with 85 % stenosis. If graft is supplying this area, 0 % stenosis [facility] Complications Complication None None Hemodynamics Pressures Site Systolic/A Wave Diastolic/V Wave Mean AO 83 57 68 AO 89 54 71 LV 92 2 12 LV 95 3 14 LV 94 7 14 AO 89 48 66 AO 83 52 67 Post Procedure Information Blood Pressure: 109/55 mmHg Rhythm: Sinus Bradycardia Post procedural instructions were given Closure Device Time Device Success/Fail 01/04/2019 11:05:00 AM Mechanical Compression Successful Site Checks Time Location Status Staff Sheath In? Note 10:58 AM Rt Arm No bleeding/hematoma King Mejia RT (R) Pulses Time Site Pre-Procedure Post-Procedure Note Bilateral DP & PT 1+ Bilateral radial 2+ Updated by Mame Gonzalez RN on 01/04/2019 11:09:21 AM electronically signed on 01/04/2019 11:09:57 AM with status of Final
--- NOTE | 2019-01-04 13:18 | Internal Med Progress Note ---
Hospitalist Progress Note - Encounter Date of Encounter: 01/04/19 Time of Encounter: 09:00 - Subjective Interval History: Patient said symptoms has improved. No chest pain or chest pressure this morning. Feels like she is at her normal status. Nitroglycerin drip stopped because BP intolerance. On heparin drip. - Exam Vitals: Temp Pulse Resp BP Pulse Ox 98 F 52 20 91/57 96 01/04/19 11:32 01/04/19 11:32 01/04/19 11:32 01/04/19 11:32 01/04/19 11:32 Exam: Pt is AAO x 3, in NAD HEENT: NC/AT, PERRL Neck: Supple, no JVD, no LAD Lungs: CTA b/l Heart: S1S2, RRR Abd: Soft, nontender, BS present Ext: ROM wnl, no pedal edema Neuro: No focal deficit - Assessment and Plan (1) Diabetes mellitus Current Visit: Yes Status: Acute Assessment and Plan: Patient takes Janumet at home. Will place patient on sliding scale insulin coverage. (2) NSTEMI (non-ST elevated myocardial infarction) Current Visit: Yes Status: Acute Assessment and Plan: Patient has chest pain, pressure-like, with nausea, shortness of breath, and diaphoresis. Has a risk factor of morbid obesity and diabetes. Has history of smoking, quit 5-7 years ago. Elevated troponin without ST elevation, consider NSTEMI. - Place patient on continuous cardiac monitoring - 3 sets of troponin elevated - Heparin drip continue. - ASA 324 mg by mouth once given from ER. Metoprolol 12.5 mg by mouth every 8 hours. - Plan for [facility] (3) DVT prophylaxis Current Visit: Yes Status: Acute Assessment and Plan: Patient is on heparin drip (4) Morbid obesity Current Visit: Yes Status: Acute Assessment and Plan: BMI of 40.9. Need lifestyle modification as outpatient. - Time Spent with Patient Total time spent is greater than 50% in coordination of care (as documented) at patient's floor/unit and/or counseling patient: 40 minutes Greater than 35 minutes Plan of Care Discussed with: patient Internal Medicine: Result - Labs CBC & Chem 7: 01/04/19 01:26 01/04/19 01:26 Labs: Short CBC 01/03/19 01/03/19 01/04/19 Range/Units 15:49 18:00 01:26 WBC 5.7 6.8 5.5 (4.3-11.1) K/mcL Hgb 12.9 13.1 11.7 (11.5-15.4) g/dL Hct 40.0 40.7 36.4 (35.3-44.9) % Plt Count 183 209 182 (140-400) K/mcL Neutrophils # 3.7 3.0 (1.6-8.9) K/mcL BMP 01/03/19 01/04/19 15:49 01:26 Sodium 141 140 Potassium 3.5 3.4 L Chloride 106 107 Carbon Dioxide 25 26 BUN 22 H 20 Creatinine 1.26 H 1.18 Glucose 99 119 H Calcium 9.3 8.5 L Cardiac Enzymes 01/03/19 01/03/19 01/04/19 Range/Units 15:49 21:44 01:26 Troponin I 2.00 H* 3.14 H* 3.87 H* (< 0.04) ng/mL 01/04/19 Range/Units 05:44 Troponin I 3.81 H* (< 0.04) ng/mL - ABG Interpretation ABG results: PT/INR, D-dimer PT 10.4 Seconds (9.4-12.1) 01/03/19 18:00 - Impressions Impressions Chest X-Ray 01/03/19 15:42 IMPRESSION: No acute process. D/ / Peter Arevalo MD / Peter Arevalo MD Interpreting Provider: Peter Arevalo MD Consult Discharge Plan - Plan Referrals: Allegra Rockwell, MUSIC TYPOGRAPHER [Primary Care Provider] - (1) Diabetes mellitus Qualifiers: Diabetes mellitus type: type 2 Diabetes mellitus ferry terminal supervisor insulin use: without [place] [facility] use Diabetes mellitus complication status: without complication Qualified Code(s): E11.9 - Type 2 diabetes mellitus without complications
[2019-01-04] MEDS ORDERED: 0.9 % Sodium Chloride 250 ML IVC ONE (13:59)
[2019-01-04] MEDS: *HR* Ticagrelor 90 MG TABLET PO SCH (20:28)
[2019-01-04] MEDS ORDERED: Ondansetron 4 MG/2 ML VIAL IVP PRN (21:53)
[2019-01-05 07:29] LABS: Basophils % 0.4 %; Eosinophils # 0.1 K/mcL (0.0-0.6); Eosinophils % 1.3 %; Hematocrit 37.9 % (35.3-44.9); Hemoglobin 12.1 g/dL (11.5-15.4); Immature Granulocytes % 0.4 % (0-4); Lymphocytes # 1.1 K/mcL (0.6-4.6); Lymphocytes % 19.3 %; Mean Corpuscular HGB Conc 31.9 g/dL (31.6-35.5); Mean Corpuscular Hemoglobin 29.6 pg (28.0-33.3); Mean Corpuscular Volume 92.7 fL (83.0-100.0); Mean Platelet Volume 9.9 fL (9.4-12.4); Monocytes # 0.5 K/mcL (0.0-1.3); Neutrophils # 3.8 K/mcL (1.6-8.9); Platelet Count 155 K/mcL (140-400); Red Blood Count 4.09 M/mcL (3.82-4.97); Red Cell Distribution Width 13.2 % (11.5-14.5); Segmented Neutrophils % 69.6 %
[2019-01-05 07:53] LABS: Calcium 8.8 mg/dL (8.6-10.3); Potassium 4.2 mEq/L (3.5-5.1)
[2019-01-05] MEDS: *HR* Ticagrelor 90 MG TABLET PO SCH (08:01)
[2019-01-05] MEDS: Insulin LISPRO 300 UNITS/3 ML VIAL SQ SCH (08:01)
[2019-01-05 08:02] VITALS: BP 123/83
--- NOTE | 2019-01-05 08:38 | Discharge Summary ---
- NOTES TO OUTPATIENT PROVIDER Notes to Outpatient Provider: [facility] Date of Encounter: 01/05/19 Time of Encounter: 08:31 - Discharge Diagnosis (1) NSTEMI (non-ST elevated myocardial infarction) Priority: Primary Status: Acute Hospital course: Dear Doctors, I recently had the opportunity to care for this patient during their recent hospital stay at [facility]. Margaret Babcock is a 58 F w hx DM2, HTN, [place], morbid obesity, former smoker, who p/w chest pain. In the ED, ECG showing T-wave flattening in lead I and aVL, with initial troponin elevated to 2, consistent with NSTEMI. Cardio consulted who took patient for [facility], with SAWYER x1 placed to [facility]. Pt initiated or continued on BB, ACEi, high intensity statin, ASA, and brillinta. Will f/u cardio after d/c. Dx: NSTEMI Pertinent tests/consults: [facility] Follow up: Cardio 1-2 weeks Tests pending: none Med changes: - new ASA 81 - increase Crestor to 40 - new metoprolol 12.5 bid - continue lisinopril 5 - new billinta 90 bid - new nitro SL tabs prn Mental status: awake, fully oriented Code status: auto roller spent on discharge: 25 minutes It has been my pleasure participating in this patient's care. Please contact me with any questions or concerns regarding their hospital stay. Sincerely, Иван Hair MD - Time Spent with Patient Total time spent providing and/or coordinating discharge services: - Discharge Medications Prescriptions: New Aspirin 81 mg PO DAILY #30 tab.chew Metoprolol [Lopressor] 12.5 mg PO BID #60 tablet Nitroglycerin 0.4 mg SL PRN PRN 30 Days #30 tab.subl PRN Reason: Chest Pain Rosuvastatin [Crestor] 40 mg PO HS #30 tablet Ticagrelor [Brilinta] 90 mg PO BID #60 tablet Continue hydroCHLOROthiazide [Hydrochlorothiazide] 25 mg PO DAILY Sitagliptin Phos/Metformin HCl [Janumet 50-1,000 mg Tablet] 1 tab PO BID Cetirizine HCl [Zyrtec] 10 mg PO DAILY Montelukast [Singulair] 10 mg PO HS Glimepiride [Amaryl] 2 mg PO DAILY Lisinopril [Zestril] 5 mg PO DAILY Discontinued BuPROPion SR (12 HR) [Wellbutrin SR] 150 mg PO DAILY Rosuvastatin Calcium 20 mg PO DAILY Home Medications: Cetirizine HCl [Zyrtec] 10 mg PO DAILY 03/10/16 [History] Montelukast [Singulair] 10 mg PO HS 03/10/16 [History] Sitagliptin Phos/Metformin HCl [Janumet 50-1,000 mg Tablet] 1 tab PO BID 03/10/16 [History] hydroCHLOROthiazide [Hydrochlorothiazide] 25 mg PO DAILY 03/10/16 [History] Glimepiride [Amaryl] 2 mg PO DAILY 01/03/19 [History] Lisinopril [Zestril] 5 mg PO DAILY 01/03/19 [History] Aspirin 81 mg PO DAILY #30 tab.chew 01/05/19 [Rx] Metoprolol [Lopressor] 12.5 mg PO BID #60 tablet 01/05/19 [Rx] Nitroglycerin 0.4 mg SL PRN PRN 30 Days #30 tab.subl 01/05/19 [Rx] Rosuvastatin [Crestor] 40 mg PO HS #30 tablet 01/05/19 [Rx] Ticagrelor [Brilinta] 90 mg PO BID #60 tablet 01/05/19 [Rx] Allergies/Adverse Reactions: Allergy/AdvReac Type Severity Reaction Status Date / Time No Known Allergies Allergy Verified 09/13/17 15:56 Date of admission: 01/03/19 19:16 Primary care physician: Allegra Rockwell CNP Consults: 01/03/19 18:37 Consult to Cardiology [CONS] Routine Comment: Consulting Provider: Cardiology Neelam Reason for Consult: NSTEMI Call Completed: Yes 01/04/19 11:06 Consult to Cardiac Rehabilitation-Phase1 [CONS] Routine Comment: Reason for Consult: post op PCI Call Completed: Yes - Constitutional Vitals: Temp Pulse Resp BP Pulse Ox 97.6 F 66 16 123/83 92 01/05/19 07:57 01/05/19 07:57 01/05/19 07:57 01/05/19 07:57 01/05/19 07:57 Exam: General: NAD, good eye contact, well appearing, obese Thoracic: Normal breath sounds b/l, no wheezing or crackles Cardio: Normal S1 and S2, regular rate and rhythm, no murmurs Abdomen: Soft, nontender, nondistended. Extremities: Warm, well perfused. DP pulses 2+ b/l. No edema. Skin: Intact. No rashes, bruises, or ulcers Neuro: Awake, fully oriented. Speech fluent - Patient Status Disposition: Home, Self-Care Condition: Fair Overall status at discharge: patient is back to baseline - Discharge Instructions Instructions: Metoprolol (By mouth), Aspirin (By mouth), Nitroglycerin, Rapid Release (By mouth), Rosuvastatin (By mouth), Ticagrelor (By mouth), Myocardial Infarction (DC), Coronary Intravascular Stent Placement (DC) Follow Up With: Dawit Hare CNP [Advanced Practice Nurse] - (CARDIO OFFICE WILL CALL YOU WITH APPT DATE & TIME.) Allegra Rockwell CNP [Primary Care Provider] - 01/10/19 11:00 am Forms: ED Satisfaction Letter Additional Instructions: RISK FACTORS: STOP SMOKING: If you smoke, STOP. Smoking or tobacco use significantly increases your risk of heart disease because nicotine causes the arteries to narrow or constrict. It also causes fats to stick to the artery. Your chances of having a heart attack are greatly increased if you continue to smoke. For more information, call the education line for smoking cessation 3-137-SXJGRXP EAT A LOW FAT/CHOLESTEROL/SODIUM DIET: This diet may help reduce your chances of having a heart attack. LIFTING: With affected extremity: Avoid bending, pushing off and lifting more than 2 pounds for 24 hours The following 48 hours, avoid lifting anything more than 5 pounds Avoid strenuous activity or repetitive motions ACTIVITY: You may walk or climb stairs as tolerated You can resume sexual activity as tolerated In general, you are encouraged to engage in a minimum of 30 minutes or more of moderate intensity physical activity, such as brisk walking, daily or at least 3-4 times weekly BATHING Do not submerge the site into water (bath tub, hot tub, swimming pool, dishes) for 1 week. This can be a source for infection into the blood stream. You may shower after 24 hours SITE CARE: After 24 hours, you may remove the dressing and leave the site open to air. Keep the site clean and dry. Clean gently and pat dry. You can expect bruising and tenderness that gradually resolve within a week or two. Return to work as instructed per your physician- Usually in one week Resume driving as instructed per physician-Usually one week Keep all scheduled follow up appointments Resume medications as instructed IMPORTANT: If prescribed a Platelet Aggregation Inhibitor such as, Plavix, Brilinta or Effient: Duration of therapy is minimum one year These medications are often used in combination with Aspirin in prevention of future heart attacks Never discontinue unless consult with your Spreader Operator Automatic STROKE (CVA) Risk factors for a stroke are: Age, cigarette smoking, diabetes, excessive alcohol consumption, family history, high blood pressure, overweight, physical inactivity, prior stroke, heart attack, diagnosis of carotid artery stenosis or other artery disease. Warning signs: Sudden numbness or weakness of the face, arm or leg; especially on one side of the body, sudden confusion, trouble speaking or understanding, sudden trouble seeing in one or both eyes, sudden trouble walking, dizziness, loss of balance or coordination, sudden severe headache with no cause. Call 911 or go to the Emergency Room. CONGESTIVE HEART FAILURE: If you have been diagnosed with Congestive Heart Failure (CHF) and your symptoms return, make an appointment with your physician Weigh yourself daily. Notify your physician if you have a weight gain of two or more pounds in one day or five or more pounds in one week. If you experience any difficulty breathing, please call 911 BLEEDING: Although the risk of bleeding is minimal, it can happen. If you have any bleeding from the site, apply firm pressure above the puncture site for 10-15 minutes. If the bleeding does not stop, continue manual pressure and call 911 Contact [facility] ( ) if: You develop a fever greater than 101 degrees Fahrenheit Your site becomes reddened or has any drainage You have an increase in pain or burning at the site or if a large knot forms at the site. If you experience chest pain, shortness of breath, dizziness, or extreme tiredness, stop the activity and rest. Please notify [facility] office if you experience any of these symptoms and they are not relieved by rest please call 911! - Diet and Activity Activity: resume usual activities as tolerated (no lifting >5 lbs for 1 week) Diet: diabetic diet, low fat, low cholesterol
[2019-01-05] MEDS ORDERED: Aspirin 81 MG TAB.CHEW PO SCH (09:00)
--- NOTE | 2019-01-05 10:29 | Cardiology Progress Note ---
Date of Encounter: 01/05/19 Time of Encounter: 10:26 Assessment and Plan (1) NSTEMI (non-ST elevated myocardial infarction) Current Visit: Yes Status: Acute Troponin elevation up to 3.87. EKG shows SR with possible old septal infarct. Underwent LHC yesterday--severe 1V CAD. EF 60%. Patient had successful Drug- Eluting Stent placement in the mid RCA. No chest pain overnight--intermittent dyspnea. DAPT (ASA and Brilinta) uninterrupted x 1 year. Pt verbalizes understanding. Continue Statin and BB, ACEi. TTE EF 60-65%, mild LVDD. Right radial access site healing well. No bleeding, hematoma or ecchymosis noted. Restrictions discussed. Cardiology signing off. Reconsult PRN. Will coordinate outpt follow-up in 1 week. (2) CAD (coronary artery disease) Current Visit: Yes Status: Acute As above, NSTEMI s/p PCI to mRCA. ASA, Brilinta, Statin, BB, ACEi. Qualifiers: Coronary Disease-Associated Artery/Lesion type: [place] artery [place] vs. transplanted heart: [place] heart Associated angina: angina presence unspecified Qualified Code(s): I25.10 - Atherosclerotic heart disease of [place] coronary artery without angina pectoris Discussion w patient/family: The assessment and plan as outlined above was discussed with the patient and/or family members who expressed understanding and agreement. All questions were answered. Thank you for involving us in the care of your patient. Please call with any questions. I will discuss all the above with Dr. Taylor and make changes as necessary. Subjective Principal diagnosis: NSTEMI Interval history: S/P LHC yesterday with SAWYER to mRCA. TTE EF 60-65%. Denies chest pain overnight. Reports intermittent dyspnea. Objective Vital Signs, Last 4 Hours Temp Pulse Resp BP Pulse Ox 01/05/19 07:57 97.6 F 66 16 123/83 92 Vital Signs Temp Pulse Resp BP Pulse Ox 01/05/19 07:57 97.6 F 66 16 123/83 92 01/05/19 04:00 97.7 F 62 12 101/65 94 01/05/19 00:00 97.7 F 66 14 96/65 98 01/04/19 20:00 97.7 F 59 14 98/56 96 01/04/19 16:52 97.7 F 56 16 106/76 97 01/04/19 11:32 98 F 52 20 91/57 96 Intake and Output 01/04/19 01/05/19 01/05/19 23:59 07:59 15:59 Intake Total 522 / 522 360 / 360 240 / 240 Output Total 700 / 700 1100 / 1100 Balance -178 / -178 -740 / -740 240 / 240 Intake: IV Fluids 522 / 522 KCl 40 MEQ Xylocaine 2 ML In 522 / 522 Dextrose 5% 500 ML @ 130.5 mls/ hr IVPB ONCE ONE Rx#:[id number] Oral 0 / 0 360 / 360 240 / 240 Output: Urine 700 / 700 1100 / 1100 Other: Meal Breakfast Percent of Meal Consumed 100% Weight 99.9 kg Blood Glucose* 96 116 Patient Weight 01/05/19 23:59 Weight 99.9 kg General: Conversant, No Apparent Distress HEENT: Atraumatic, Normocephaly, Mucus Membranes Moist Neck: No JVD, Normal carotid pulses Cardiac: Reg Rate and Rhythm, Normal S1 and S2, No Murmur Lungs: Normal Breath Sounds, No Wheeze, Rales, Rhonchi Neuro: Alert and responsive, No focal deficits noted Abdomen: Soft, Non-Tender Skin: Other (right radial access site healing well. No bleeding, hematoma or ecchymosis noted.) Musculoskeletal: No Chest Wall Tenderness Extremities: No Clubbing, No Cyanosis, No Edema, Normal Pulses Results 01/05/19 06:45 01/05/19 06:45 Lab Results 01/05/19 01/05/19 06:45 06:45 WBC 5.4 Hgb 12.1 Hct 37.9 Plt Count 155 Sodium 140 Potassium 4.2 Chloride 108 H Carbon Dioxide 24 BUN 16 Creatinine 1.13 Glucose 134 H Calcium 8.8 Short CBC 01/05/19 Range/Units 06:45 WBC 5.4 (4.3-11.1) K/mcL Hgb 12.1 (11.5-15.4) g/dL Hct 37.9 (35.3-44.9) % Plt Count 155 (140-400) K/mcL Neutrophils # 3.8 (1.6-8.9) K/mcL BMP 01/05/19 Range/Units 06:45 Sodium 140 (136-145) mEq/L Potassium 4.2 (3.5-5.1) mEq/L Chloride 108 H (98-107) mEq/L Carbon Dioxide 24 (23-29) mEq/L BUN 16 (6-20) mg/dL Creatinine 1.13 (0.60-1.20) mg/dL Glucose 134 H (70-105) mg/dL Calcium 8.8 (8.6-10.3) mg/dL Impressions Echocardiogram 01/03/19 17:32 Impressions: LVEF 60-65%. Normal LV chamber size, wall thickness and function. Mild left ventricular diastolic dysfunction. Normal right ventricular structure and function. No evidence of pulmonary hypertension. No significant valvular dysfunction. Left Ventricular Wall Motion: Rest Echo Findings All wall segments showed normal motion. Findings: Study Quality * Technically adequate exam. ECG Findings * Sinus bradycardia. Left Ventricle * LVEF 60-65%. * Normal LV chamber size, wall thickness and function. * Mild left ventricular diastolic dysfunction. Right Ventricle * Normal right ventricular structure and function. Left Atrium * Mildly dilated left atrium. Right Atrium * Normal right atrial size. Aortic Valve * Aortic valve not well visualized. * No aortic regurgitation. * No aortic stenosis. Mitral Valve * Mild mitral annular calcification. * Trace mitral regurgitation. * No mitral stenosis. Tricuspid Valve * Normal tricuspid valve structure and function. * Trace tricuspid regurgitation. * No evidence of pulmonary hypertension. Pulmonic Valve * Normal pulmonic valve structure and function. * No pulmonic regurgitation. Aorta * Normally sized aortic root. Pericardium * Trivial pericardial effusion. IVC * Normal IVC dimensions and inspiratory collapse. Pulmonary Artery * Normal visualized portions of the main pulmonary artery. Active Medications Acetaminophen (Tylenol) 650 mg PO Q6HR PRN PRN Reason: Mild Pain/Fever Stop: 07/05/19 18:27 Aspirin (Aspirin) 81 mg PO DAILY SHARON Stop: 07/07/19 09:01 Last Admin: 01/05/19 08:01 Dose: 81 mg Dextrose/Water (Dextrose 50% (Syg)) 25 ml IVP AD PRN PRN Reason: Hypoglycemia Stop: 07/05/19 18:33 Glucagon (Glucagen) 1 mg IM ONCE PRN PRN Reason: Hypoglycemia Stop: 07/05/19 18:33 Glucose (Gluctose) 15 gm PO ONCE PRN PRN Reason: Hypoglycemia Stop: 07/05/19 18:33 Glucose (Gluctose) 30 gm PO ONCE PRN PRN Reason: Hypoglycemia Stop: 07/05/19 18:33 Dextrose (Dextrose 5%) 1,000 mls @ 100 mls/hr IVC .Q10H PRN PRN Reason: HYPOGLYCEMIA Stop: 07/05/19 18:33 Insulin Human Lispro (Humalog) 0 units SQ [facility]; Protocol Stop: 07/05/19 21:01 Last Admin: 01/04/19 21:45 Dose: Not Given Insulin Human Lispro (Humalog) 0 units SQ TIDAC [facility]; Protocol Stop: 07/06/19 07:31 Last Admin: 01/05/19 08:01 Dose: Not Given Lisinopril (Zestril) 2.5 mg PO DAILY [facility]; Protocol Stop: 07/07/19 09:01 Last Admin: 01/05/19 08:00 Dose: 2.5 mg Metoprolol Tartrate (Lopressor) 12.5 mg PO BID [facility] Stop: 07/07/19 09:01 Naloxone HCl (Narcan) 0.4 mg IVP Q2M PRN PRN Reason: SEE COMMENTS Stop: 07/05/19 18:27 Omeprazole (Prilosec) 20 mg PO DAILY@0630 [facility]; Protocol Stop: 07/05/19 18:42 Last Admin: 01/05/19 05:20 Dose: 20 mg Ondansetron HCl (Zofran) 4 mg IVP Q4HR PRN PRN Reason: Nausea And Vomiting Stop: 07/05/19 20:01 Rosuvastatin Calcium (Crestor) 40 mg PO [facility] Stop: 07/06/19 21:01 Last Admin: 01/04/19 20:28 Dose: 40 mg Ticagrelor (Brilinta) 90 mg PO BID [facility] Stop: 07/06/19 21:01 Last Admin: 01/05/19 08:01 Dose: 90 mg - Imaging and Cardiology Echo: report reviewed Cardiac cath: report reviewed - EKG Interpretation EKG results cardiology: other (12 hr tele AVG HR 64, SR.) Consult Discharge Plan - Plan Additional Instructions: RISK FACTORS: STOP SMOKING: If you smoke, STOP. Smoking or tobacco use significantly increases your risk of heart disease because nicotine causes the arteries to narrow or constrict. It also causes fats to stick to the artery. Your chances of having a heart attack are greatly increased if you continue to smoke. For more information, call the education line for smoking cessation 5-778-VAFCUNC EAT A LOW FAT/CHOLESTEROL/SODIUM DIET: This diet may help reduce your chances of having a heart attack. LIFTING: With affected extremity: Avoid bending, pushing off and lifting more than 2 pounds for 24 hours The following 48 hours, avoid lifting anything more than 5 pounds Avoid strenuous activity or repetitive motions ACTIVITY: You may walk or climb stairs as tolerated You can resume sexual activity as tolerated In general, you are encouraged to engage in a minimum of 30 minutes or more of moderate intensity physical activity, such as brisk walking, daily or at least 3-4 times weekly BATHING Do not submerge the site into water (bath tub, hot tub, swimming pool, dishes) for 1 week. This can be a source for infection into the blood stream. You may shower after 24 hours SITE CARE: After 24 hours, you may remove the dressing and leave the site open to air. Keep the site clean and dry. Clean gently and pat dry. You can expect bruising and tenderness that gradually resolve within a week or two. Return to work as instructed per your physician Resume driving as instructed per physician Keep all scheduled follow up appointments Resume medications as instructed IMPORTANT: If prescribed a Platelet Aggregation Inhibitor such as, Plavix, Brilinta or Effient: Duration of therapy is minimum one year These medications are often used in combination with Aspirin in prevention of future heart attacks Never discontinue unless consult with your Bleacher Operator STROKE (CVA) Risk factors for a stroke are: Age, cigarette smoking, diabetes, excessive alcohol consumption, family history, high blood pressure, overweight, physical inactivity, prior stroke, heart attack, diagnosis of carotid artery stenosis or other artery disease. Warning signs: Sudden numbness or weakness of the face, arm or leg; especially on one side of the body, sudden confusion, trouble speaking or understanding, sudden trouble seeing in one or both eyes, sudden trouble walking, dizziness, loss of balance or coordination, sudden severe headache with no cause. Call 911 or go to the Emergency Room. CONGESTIVE HEART FAILURE: If you have been diagnosed with Congestive Heart Failure (CHF) and your sym ptoms return, make an appointment with your physician Weigh yourself daily. Notify your physician if you have a weight gain of two or more pounds in one day or five or more pounds in one week. If you experience any difficulty breathing, please call 911 BLEEDING: Although the risk of bleeding is minimal, it can happen. If you have any bleeding from the site, apply firm pressure above the puncture site for 10-15 minutes. If the bleeding does not stop, continue manual pressure and call 911 Contact [facility] ( ) if: You develop a fever greater than 101 degrees Fahrenheit Your site becomes reddened or has any drainage You have an increase in pain or burning at the site or if a large knot forms at the site. If you experience chest pain, shortness of breath, dizziness, or extreme tiredness, stop the activity and rest. Please notify [facility] office if you experience any of these symptoms and they are not relieved by rest please call 911! Referrals: Allegra Rockwell CNP [Primary Care Provider] - Prescriptions: Aspirin 81 mg PO DAILY #30 tab.chew Metoprolol [Lopressor] 12.5 mg PO BID #60 tablet Nitroglycerin 0.4 mg SL PRN PRN 30 Days #30 tab.subl PRN Reason: Chest Pain Rosuvastatin [Crestor] 40 mg PO HS #30 tablet Ticagrelor [Brilinta] 90 mg PO BID #60 tablet
--- NOTE | 2019-01-05 23:00 | Electrocardiograph Report ---
[place] [id number] Test Date: 2019-01-03 Pat Name: Margaret Babcock Department: EXAM6 Room: 2NE24 Gender: F Distance Learning Program Coordinator: : 1960 Requested By: Tres Nava Order Number: [id number] Reading MD: Sky Soliman Measurements Intervals [place] Rate: 83 P: 60 TN: 160 QRS: 80 QRSD: 94 T: 70 QT: 394 QTc: 463 Interpretive Statements Sinus rhythm PVC Low voltage, precordial leads Anteroseptal infarct, old Electronically Signed On 01-05-2019 22:58:41 EDT by Sky Soliman
--- NOTE | 2019-01-05 23:02 | Electrocardiograph Report ---
[place] [id number] Test Date: 2019-01-03 Pat Name: Margaret Babcock Department: EXAM6 Room: 2NE24 Gender: F Transmission Superintendent: : 1960 Requested By: Tres Nava Order Number: [id number] Reading MD: Sky Soliman Measurements Intervals [place] Rate: 74 P: 62 ND: 158 QRS: 51 QRSD: 102 T: 67 QT: 437 QTc: 485 Interpretive Statements Sinus rhythm Low voltage, precordial leads Possible anteroseptal infarct, old Electronically Signed On 01-05-2019 23:00:54 EDT by Sky Soliman
--- NOTE | 2019-01-07 17:01 | Electrocardiograph Report ---
[place] [id number] Test Date: 2019-01-03 Pat Name: Margaret Babcock Department: 111 Room: [id number] Gender: F [employer]ator [employer]: NINO : 1960 Requested By: Daron Hernández Order Number: [id number] Reading MD: Mihai Lamb Measurements Intervals [place] Rate: 69 P: 55 DC: 179 QRS: 64 QRSD: 82 T: 43 QT: 421 QTc: 439 Interpretive Statements SINUS RHYTHM LOW QRS VOLTAGE IN PRECORDIAL LEADS POSSIBLE SEPTAL MYOCARDIAL INFARCTION, PROBABLY OLD Electronically Signed On 01-07-2019 17:00:20 EDT by Mihai Lamb
== END 2019-01-05 12:32 | disposition home or self-care (01) | DRG 247 ==
LOC: EMEROOARM 15:00 → 2NENU 19:16 → SUATTDRO 19:16 → 2NENU 20:42
PROVIDERS: ADMIT Internal Medicine; ATTEND Internal Medicine